=== PATIENT | female | born 1995 ===

== ENCOUNTER 2023-06-13 02:28 | Inpatient (IN) | payer BC ==
[2023-06-13] MEDS ORDERED: Misoprostol 200 MCG Tab PO PRN (16:25)
[2023-06-13] MEDS ORDERED: Misoprostol 25 MCG (1/4 of 100 MCG) Tab PO PRN (16:25)
[2023-06-13] MEDS ORDERED: Carboprost Tromethamine 250 MCG/1 mL Vial IM PRN (16:25)
[2023-06-13] MEDS ORDERED: Misoprostol 25 MCG (1/4 of 100 MCG) Tab VAG PRN (16:25)
[2023-06-13] MEDS ORDERED: Butorphanol 1 MG/ML SDV IVPUSH PRN (16:25)
[2023-06-13] MEDS ORDERED: Sodium Chloride 0.9% 2.5 ML Syringe FLUSH PRN ×2 (16:25→16:49)
[2023-06-13] MEDS ORDERED: Water For Irrigation,Sterile 1,000 ML Container IRR PRN (16:25)
[2023-06-13] MEDS ORDERED: Tranexamic Acid 1,000 MG in Sodium Chloride 0.9% 100 ML IV PRN (16:25)
[2023-06-13] MEDS ORDERED: Sodium Chloride 0.9% 10 ML Syringe FLUSH PRN ×2 (16:25→16:49)
[2023-06-13] MEDS ORDERED: Terbutaline 1 MG/ML SDV SUBCUT PRN (16:25)
[2023-06-13] MEDS ORDERED: Lidocaine 1% 50 ML MDV INJECT PRN (16:25)
[2023-06-13] MEDS ORDERED: Methylergonovine 0.2 MG/1 ML Amp IM PRN (16:25)
[2023-06-13] MEDS ORDERED: Sodium Chloride 0.9% 20 ML SDV IV PRN ×2 (16:25→16:49)
[2023-06-13] MEDS ORDERED: Lactated Ringers 1,000 ML IV SCH (16:30)
[2023-06-13] MEDS ORDERED: Oxytocin/0.9 % Sodium Chloride 30 UNIT/500 ML BAG IV SCH ×2 (16:30)
[2023-06-13] MEDS ORDERED: Magnesium Sulfate/Water 4 GM in Premix Bag 1 BAG IV ONE (16:49)
[2023-06-13] MEDS ORDERED: Calcium Gluconate 10% 1 GM/10 ML SDV IV PRN (16:49)
[2023-06-13] MEDS ORDERED: Dextrose 5%-0.9% NaCl 1,000 ML IV SCH (17:00)
[2023-06-13] MEDS: Magnesium Sulfate/Water 20 GM/500 ML BAG IV SCH (18:06)
[2023-06-13 18:14] LABS: APPEARANCE,URINE CLEAR; BILIRUBIN,URINE NEGATIVE (NEGATIVE); COLOR,URINE YELLOW; GLUCOSE,URINE NEGATIVE (NEGATIVE); KETONES,URINE NEGATIVE (NEGATIVE); LEUKOCYTE ESTERASE,URINE TRACE (NEGATIVE); NITRITE,URINE NEGATIVE (NEGATIVE); OCCULT BLOOD,URINE SMALL (NEGATIVE); PROTEIN,URINE NEGATIVE (NEGATIVE); UROBILINOGEN,URINE 0.2 EU/dL (<2.0)
[2023-06-13 18:16] LABS: HEMATOCRIT 38.5 % (36.0-46.0); HEMOGLOBIN 12.9 g/dL (12.0-16.0); MEAN CORPUSCULAR HEMOGLOBIN 30.7 pg (27.0-32.0); MEAN CORPUSCULAR HGB CONC 33.5 g/dL (31.0-37.0); MEAN CORPUSCULAR VOLUME 91.7 fL (80.0-98.0); MEAN PLATELET VOLUME 10.5 fL (7.40-12.00); RED BLOOD CELL COUNT 4.2 M/uL (4.30-5.90); WHITE BLOOD CELL COUNT,WBC 9.88 K/uL (4.0-11.0)
[2023-06-13 18:22] LABS: EPITHELIAL CELLS,URINE FEW (NONE-FEW); WBC,URINE 0-5 (0-5/HPF)
[2023-06-13 18:23] LABS: BACTERIA,URINE NOT SEEN (NEGATIVE)
[2023-06-13 18:43] LABS: A/G RATIO 0.6 (0.9-1.6); ALBUMIN 2.3 g/dL (3.4-5.0); BILIRUBIN TOTAL 0.3 mg/dL (0.2-1.0); CALCIUM 9.3 mg/dL (8.5-10.1); CARBON DIOXIDE,CO2 21.6 mmol/L (21.0-32.0); CREATININE 0.5 mg/dL (0.6-1.0); EST CRCL DRUG DOSING (CG) 147.23 mL/min; PROTEIN TOTAL,TP 6.4 g/dL (6.4-8.2); URIC ACID 4.4 mg/dL (2.6-7.2)
[2023-06-13 18:52] LABS: CREATININE,URINE RAND 15.8 mg/dL; PROTEIN,URINE RANDOM <6.0 mg/dL (<11.9)
[2023-06-13] MEDS: Acetaminophen 500 MG Tab PO PRN (19:53)
[2023-06-13] MEDS: Labetalol 100 MG Tab PO SCH (21:34)
[2023-06-13] MEDS: Misoprostol 25 MCG (1/4 of 100 MCG) Tab VAG PRN (21:36)
[2023-06-14] MEDS: Misoprostol 25 MCG (1/4 of 100 MCG) Tab VAG PRN ×2 (01:43→05:59)
[2023-06-14] MEDS: Magnesium Sulfate/Water 20 GM/500 ML BAG IV SCH ×2 (04:12→14:16)
[2023-06-14] MEDS ORDERED: Ondansetron 4 MG/2 ML SDV ONE (05:50)
[2023-06-14] MEDS: Ondansetron 4 MG/2 ML SDV IVPUSH PRN ×2 (06:00→12:24)
[2023-06-14] MEDS: Labetalol 100 MG Tab PO SCH ×2 (06:05→14:29)
[2023-06-14] MEDS ORDERED: Terbutaline 1 MG/ML SDV SUBCUT PRN (11:13)
[2023-06-14] MEDS ORDERED: Misoprostol 25 MCG (1/4 of 100 MCG) Tab VAG PRN ×2 (11:13)
[2023-06-14] MEDS ORDERED: Oxytocin/0.9 % Sodium Chloride 30 UNIT/500 ML BAG IV SCH (11:15)
[2023-06-14] MEDS: Acetaminophen 500 MG Tab PO PRN (13:09)
[2023-06-14] MEDS ORDERED: Ropivacaine/PF 400 MG/200 ML PCA ONE (21:58)
[2023-06-14] MEDS ORDERED: Bupivacaine 0.5% 10 ML SDV ONE (21:58)
[2023-06-14] MEDS ORDERED: Phenylephrine HCl 0.5 MG/5 ML AMP IVPUSH PRN (22:24)
[2023-06-14] MEDS ORDERED: ePHEDrine 50 MG/ML SDV IVPUSH PRN ×2 (22:24)
[2023-06-14] MEDS ORDERED: Ropivacaine HCl/PF 400 MG in Premix Bag 1 BAG EPIDUR SCH (22:30)
[2023-06-15] MEDS: Acetaminophen 500 MG Tab PO PRN (00:52)
[2023-06-15] MEDS ORDERED: ceFAZolin 2 GM in Sodium Chloride 0.9% 50 ML IV ONE (01:00)
[2023-06-15 01:13] LABS: BASOPHILS PERCENT AUTO 0.1 % (0.0-1.5); HEMATOCRIT 38.5 % (36.0-46.0); LYMPHOCYTES ABSOLUTE AUTO 1.1 K/uL (0.6-2.4); LYMPHOCYTES PERCENT AUTO 7.7 % (16.0-40.0); MEAN CORPUSCULAR HEMOGLOBIN 31.3 pg (27.0-32.0); MEAN CORPUSCULAR HGB CONC 33.8 g/dL (31.0-37.0); MEAN CORPUSCULAR VOLUME 92.5 fL (80.0-98.0); MONOCYTES ABSOLUTE AUTO 0.9 K/uL (0.0-0.8); MONOCYTES PERCENT AUTO 5.7 % (0.0-15.0); NEUTROPHILS ABSOLUTE AUTO 12.9 K/uL (1.4-5.7); NEUTROPHILS PERCENT AUTO 86.5 % (48.0-80.0); NRBC ABSOLUTE 0 K/uL; PLATELET COUNT,PLT 214 K/uL (150-400); RED BLOOD CELL COUNT 4.16 M/uL (4.30-5.90)
[2023-06-15] MEDS ORDERED: ceFAZolin 2 GM in Sodium Chloride 0.9% 50 ML IV SCH (03:00)
[2023-06-15] MEDS: Labetalol 100 MG Tab PO SCH ×3 (06:11→22:00)
[2023-06-15] MEDS: Magnesium Sulfate/Water 20 GM/500 ML BAG IV SCH (06:22)
[2023-06-15] MEDS: ceFAZolin 2 GM in Sodium Chloride 0.9% 50 ML IV SCH ×2 (09:37→17:40)
[2023-06-15] MEDS ORDERED: Docusate Sodium 100 MG Cap PO PRN (15:18)
[2023-06-16 06:55] LABS: BASOPHILS PERCENT AUTO 0.2 % (0.0-1.5); EOSINOPHILS ABSOLUTE AUTO 0.5 K/uL (0.0-0.7); EOSINOPHILS PERCENT AUTO 3.8 % (0.0-7.0); HEMATOCRIT 34.2 % (36.0-46.0); HEMOGLOBIN 11.4 g/dL (12.0-16.0); LYMPHOCYTES ABSOLUTE AUTO 3.5 K/uL (0.6-2.4); LYMPHOCYTES PERCENT AUTO 27.3 % (16.0-40.0); MEAN CORPUSCULAR HEMOGLOBIN 31.1 pg (27.0-32.0); MEAN CORPUSCULAR HGB CONC 33.3 g/dL (31.0-37.0); MEAN CORPUSCULAR VOLUME 93.4 fL (80.0-98.0); MONOCYTES PERCENT AUTO 7.8 % (0.0-15.0); NEUTROPHILS ABSOLUTE AUTO 7.7 K/uL (1.4-5.7); NEUTROPHILS PERCENT AUTO 60.9 % (48.0-80.0); NRBC ABSOLUTE 0 K/uL; PLATELET COUNT,PLT 208 K/uL (150-400); RED BLOOD CELL COUNT 3.66 M/uL (4.30-5.90); WHITE BLOOD CELL COUNT,WBC 12.66 K/uL (4.0-11.0)
[2023-06-16] MEDS: Labetalol 100 MG Tab PO SCH (06:58)
== END 2023-06-16 13:00 | disposition home or self-care (01) | DRG 560 ==
LOC: MW.OB 02:28 → OBSVTOIN 06-15 02:28 → MW.OB 06-15 06:21
PROVIDERS: ADMIT Obstetrics & Gynecology; ATTEND Obstetrics & Gynecology
PROC: 10E0XZZ Delivery of Products of Conception, External Approach (ICD-10-PCS; principal; 2023-06-15)
PROC: 10907ZC Drainage of Amniotic Fluid, Therapeutic from Products of Conception, Via Natural or Artificial Opening (ICD-10-PCS; 2023-06-15)
PROC: 3E033VJ Introduction of Other Hormone into Peripheral Vein, Percutaneous Approach (ICD-10-PCS; 2023-06-15)
PROC: 3E0P7VZ Introduction of Hormone into Female Reproductive, Via Natural or Artificial Opening (ICD-10-PCS; 2023-06-15)
PROC: 0UQMXZZ Repair Vulva, External Approach (ICD-10-PCS; 2023-06-15)
PROC: 3E0R3BZ Introduction of Anesthetic Agent into Spinal Canal, Percutaneous Approach (ICD-10-PCS; 2023-06-15)
PROC: 00HU33Z Insertion of Infusion Device into Spinal Canal, Percutaneous Approach (ICD-10-PCS; 2023-06-15)
PROC: 3E0334Z Introduction of Serum, Toxoid and Vaccine into Peripheral Vein, Percutaneous Approach (ICD-10-PCS; 2023-06-15)
DX: O14.14 Severe pre-eclampsia complicating childbirth (principal); Z3A.37 37 weeks gestation of pregnancy; Z37.0 Single live birth; H53.9 Unspecified visual disturbance; O26.893 Other specified pregnancy related conditions, third trimester; Z67.41 Type O blood, Rh negative
CPT/HCPCS: 01967; 36415; 51702; 80053; 81001; 82570; 83615; 83735; 84156; 84550; 85025; 85027; 85460; 86592; 86850; 86870; 86900; 86901; A9270-GY; J0690; J2405; J2590; J2790; J2795; J3475; J3490; J7042; J7120